=== PATIENT | female | born 1980 | race Caucasian/White ===

== ENCOUNTER 2024-02-05 11:40 | Observation (INO) | payer OTHER ==
[2024-02-05] MEDS ORDERED: LORazepam 2 MG/ML INJ IV PRN (12:29)
--- NOTE | 2024-02-05 12:29 | ED ---
General Adult HPI - General Chief complaint: Alcohol Stated complaint: ETOH Time Seen by Provider: 02/05/24 12:13 Source: patient, EMS Mode of arrival: EMS Limitations: no limitations - History of Present Illness Initial comments: Dictation was produced using [employer] dictation software. please excuse any grammatical, word or spelling errors. Chief Complaint: 43-year-old female presents to the emergency department for alcohol intoxication History of Present Illness: Patient is a 43-year-old female she is a alcoholic. Patient had drank almost a pint of vodka. She tried to check in at [facility] however her breath alcohol test was high and patient was redirected to the emergency department. Apparently she blew a 0.35 breath alcohol test. P atient states that she needs help. She has been admitted to the hospital before for alcohol withdrawal. Patient states that if she does not get help she will be suicidal. Denies any abdominal pain. No other complaints. The ROS documented in this emergency department record has been reviewed and confirmed by me. Those systems with pertinent positive or negative responses have been documented in the HPI. All other systems are other negative and/or noncontributory. - Related Data Home Medications Medication Instructions Recorded Confirmed Cetirizine HCl [Zyrtec] 10 mg PO DAILY 02/05/24 02/05/24 DULoxetine HCL [Cymbalta] 30 mg PO DAILY 02/05/24 02/05/24 DULoxetine HCL [Cymbalta] 60 mg PO DAILY 02/05/24 02/05/24 Iron Bis-Glycinat/Vit C/FA/B12 2 cap PO DAILY 02/05/24 02/05/24 [Gentle Iron 28 mg Capsule] Naltrexone HCl [Revia] 50 mg PO DAILY 02/05/24 02/05/24 Prazosin [Minipress] 5 mg PO HS 02/05/24 02/05/24 Super B Complex With Vitamin C 1 tab PO DAILY 02/05/24 02/05/24 busPIRone HCL 15 mg PO TID 02/05/24 02/05/24 lisinopriL [Zestril] 5 mg PO DAILY 02/05/24 02/05/24 Allergies Allergy/AdvReac Type Severity Reaction Status Date / Time No Known Allergies Allergy Verified 02/05/24 13:52 Review of Systems ROS Statement: Those systems with pertinent positive or pertinent negative responses have been documented in the HPI. ROS Other: All systems not noted in ROS Statement are negative. Past Medical History Past Medical History: Hypertension Past Psychological History: No Psychological Hx Reported Past Alcohol Use History: Abuse, Daily General Exam - General Exam Comments Initial Comments: PHYSICAL EXAM: General Impression: Alert and oriented x3, not in acute distress HEENT: Normocephalic atraumatic, extra-ocular movements intact, pupils equal and reactive to light bilaterally, mucous membranes moist. Cardiovascular: Heart regular rate and rhythm Chest: Able to complete full sentences, no retractions, no tachypnea Abdomen: abdomen soft, non-tender, non-distended, no organomegaly Musculoskeletal: Pulses present and equal in all extremities, no peripheral edema Motor: no focal deficits noted Neurological: CN II-XII grossly intact, no focal motor or sensory deficits noted Skin: Intact with no visualized rashes Psych: Normal affect and mood Limitations: no limitations Course Vital Signs 02/05/24 11:58 Temperature 98.1 F Pulse Rate 86 Respiratory 18 Rate Blood Pressure 124/78 O2 Sat by Pulse 98 Oximetry EKG Findings - EKG Comments: EKG Findings:: My EKG interpretation: Ventricular rate 89, sinus rhythm,. 120, cures 90, QTc 427. No IL prolongation, no QTC prolongation, no ST or T-wave changes noted. Overall, this EKG is unremarkable Medical Decision Making - Medical Decision Making Was pt. sent in by a medical professional or institution (, PA, SENIOR WEALTH ADVISOR, urgent care, hospital, or detention...) When possible be specific @ -No Did you speak to anyone other than the patient for history (EMS, parent, family, police, friend...)? What history was obtained from this source @ -No Did you review nursing and triage notes (agree or disagree)? Why? @ -I reviewed and agree with nursing and triage notes Were old charts reviewed (outside hosp., previous admission, EMS record, old EKG, old radiological studies, urgent care reports/EKG's, detention records)? Report findings @ -No old charts were reviewed Differential Diagnosis (chest pain, altered mental status, abdominal pain women, abdominal pain men, vaginal bleeding, musculoskeletal, weakness, fever, dyspnea, syncope, headache, dizziness, GI bleed, back pain, seizure, CVA, palpatations, mental health)? @ -Differential Altered Mental Status: Hypoglycemia, DKA, hypercapnia, ETOH, overdose, CO poisoning, trauma, myxedema coma, HTN encephalopathy, infection, encephalitis, psychosis, intercranial hemorrhage, hepatic encephalopathy, meningitis, CVA, this is not meant to be an all-inclusive list EKG interpreted by me (3pts min.). @ -See above X-rays interpreted by me (1pt min.). @ -None done CT interpreted by me (1pt min.). @ -None done U/S interpreted by me (1pt. min.). @ -None done What testing was considered but not performed or refused? (CT, X-rays, U/S, labs)? Why? @ -None What meds were considered but not given or refused? Why? @ -None Did you discuss the management of the patient with other professionals (professionals i.e. , PA, SENIOR WEALTH ADVISOR, lab, RT, psych nurse, aids social worker, business applications analyst, teacher, co founder and chief strategy officer, behavioral health case manager)? Give summary @ -Case discussed with hospitalist for admission Was smoking cessation discussed for >3mins.? @ -No Was critical care preformed (if so, how long)? @ -No Were there social determinants of health that impacted care today? How? (Homelessness, low income, unemployed, alcoholism, drug addiction, transportation, low edu. Level, literacy, decrease access to med. care, [facility], rehab)? @ -No Was there de-escalation of care discussed even if they declined (Discuss DNR or withdrawal of care, Hospice)? DNR status @ -No What co-morbidities impacted this encounter? (DM, HTN, Smoking, COPD, CAD, Cancer, CVA, ARF, Chemo, Hep., AIDS, mental health diagnosis, sleep apnea, morbid obesity)? @ -None Was patient admitted / discharged? Hospital course, mention meds given and route, prescriptions, significant lab abnormalities, going to OR and other pertinent info. @ -44-year-old female presents emergency department for alcohol intoxication. She had a breath alcohol test 0.35 at [facility]. Patient states that she has been admitted multiple occasions for alcohol laboratory evaluation obtained shows alcoholic ketoacidosis, hyperglycemia 68. Elevated liver enzymes lactic acidosis likely secondary to liver disease. Vital signs upon arrival are within acceptable limits. Patient will be admitted for inpatient hospital treatment for alcohol withdrawals. Undiagnosed new problem with uncertain prognosis? @ -No Drug Therapy requiring intensive monitoring for toxicity (Heparin, Nitro, Insulin, Cardizem)? @ -No Were any procedures done? @ -No Diagnosis/symptom? Acute, or Chronic, or Acute on Chronic? Uncomplicated (without systemic symptoms) or Complicated (systemic symptoms)? @ -Alcohol dependence Side effects of treatment? @ -No Exacerbation, Progression, or Severe Exacerbation? @ -No Poses a threat to life or bodily function? How? (Chest pain, USA, MA, pneumonia, PE, COPD, DKA, ARF, appy, cholecystitis, CVA, Diverticulitis, Homicidal, Suicidal, threat to staff... and all critical care pts) @ -yes - Lab Data Result diagrams: 02/05/24 13:01 02/05/24 13:01 Lab Results 02/05/24 02/05/24 02/05/24 Range/Units 13:01 13:01 13:01 WBC 4.8 (3.8-10.6) k/uL RBC 4.40 (3.80-5.40) m/uL Hgb 13.5 (11.4-16.0) gm/dL Hct 42.3 (34.0-46.0) % MCV 96.2 (80.0-100.0) fL MCH 30.7 (25.0-35.0) pg MCHC 31.9 (31.0-37.0) g/dL RDW 15.1 (11.5-15.5) % Plt Count 274 (150-450) k/uL MPV 6.9 Neutrophils % 50 % Lymphocytes % 42 % Monocytes % 5 % Eosinophils % 1 % Basophils % 1 % Neutrophils # 2.4 (1.3-7.7) k/uL Lymphocytes # 2.0 (1.0-4.8) k/uL Monocytes # 0.2 (0-1.0) k/uL Eosinophils # 0.0 (0-0.7) k/uL Basophils # 0.0 (0-0.2) k/uL Sodium 144 (137-145) mmol/L Potassium 4.6 (3.5-5.1) mmol/L Chloride 113 H (98-107) mmol/L Carbon Dioxide 17 L (22-30) mmol/L Anion Gap 14 mmol/L BUN 8 (7-17) mg/dL Creatinine 0.57 (0.52-1.04) mg/dL Est GFR (CKD-EPI)AfAm >90 (>60 ml/min/1.73 sqM) Est GFR (CKD-EPI)NonAf >90 (>60 ml/min/1.73 sqM) Glucose 68 L (74-99) mg/dL Plasma Lactic Acid Ben 3.2 H* (0.7-2.0) mmol/L Calcium 8.7 (8.4-10.2) mg/dL Magnesium 1.9 (1.6-2.3) mg/dL Total Bilirubin 0.5 (0.2-1.3) mg/dL AST 85 H (14-36) U/L ALT 50 H (4-34) U/L Alkaline Phosphatase 94 (38-126) U/L Total Protein 7.1 (6.3-8.2) g/dL Albumin 4.8 (3.5-5.0) g/dL Disposition Clinical Impression: Alcoholic intoxication Disposition: ADMITTED IP TO THIS HOSP Condition: Fair Referrals: None,Stated [Primary Care Provider] - 1-2 days Decision Time: 13:58
[2024-02-05] MEDS: LORazepam 2 MG/ML INJ IV PRN (13:08)
[2024-02-05 13:26] LABS: Basophils % (A) 1 %; Eosinophils % (A) 1 %; HCT 42.3 % (34.0-46.0); HGB 13.5 gm/dL (11.4-16.0); Lymphocytes % (A) 42 %; MCH 30.7 pg (25.0-35.0); MCHC 31.9 g/dL (31.0-37.0); MCV 96.2 fL (80.0-100.0); Mean Platelet Volume 6.9; Monocytes # (A) 0.2 k/uL (0-1.0); Monocytes % (A) 5 %; Neutrophils # (A) 2.4 k/uL (1.3-7.7); Neutrophils % (A) 50 %; Platelet Count 274 k/uL (150-450); RDW 15.1 % (11.5-15.5); WBC 4.8 k/uL (3.8-10.6)
[2024-02-05 13:40] LABS: ALT 50 U/L (4-34); AST 85 U/L (14-36); African American GFR (CKD) >90 (>60 ml/min/1.73 sqM); Albumin 4.8 g/dL (3.5-5.0); Alkaline Phosphatase 94 U/L (38-126); Anion Gap 14 mmol/L; Blood Urea Nitrogen 8 mg/dL (7-17); Calcium 8.7 mg/dL (8.4-10.2); Carbon Dioxide 17 mmol/L (22-30); Chloride 113 mmol/L (98-107); Glucose 68 mg/dL (74-99); Magnesium 1.9 mg/dL (1.6-2.3); Non-African American GFR(CKD) >90 (>60 ml/min/1.73 sqM); Potassium 4.6 mmol/L (3.5-5.1); Sodium 144 mmol/L (137-145); Total Bilirubin 0.5 mg/dL (0.2-1.3); Total Protein 7.1 g/dL (6.3-8.2)
[2024-02-05] MEDS ORDERED: NALOXONE 0.4 MG/ML 1 ML VIAL IV PRN (13:55)
[2024-02-05 14:37] LABS: Glucose,Whole Blood 73 mg/dL (70-110)
[2024-02-05] MEDS: THIAMINE 100 MG/ML 2 ML VIAL IM STA (16:55)
[2024-02-05] MEDS: SODIUM CHLORIDE 0.9% 1,000 ML IV SCH (17:01)
[2024-02-05] MEDS: DEXTROSE 50% SYRINGE 50 ML IVP STA (19:25)
[2024-02-06] MEDS: THIAMINE 100 MG TAB PO SCH (08:52)
[2024-02-06] MEDS: LORazepam 2 MG/ML INJ IV PRN (09:11)
--- NOTE | 2024-02-06 11:40 | P.HPIM ---
History of Present Illness Patient is a pleasant 43-year-old female sent in from [facility] as she was having withdrawals ER. Patient last alcohol drink was about 24 hours ago considering that patient has positive alcohol in her system patient was sent in here from [facility]. Patient denies any fever or chills. Patient does smoke a pack of cigarettes per day and is wheezing on exam. Patient had any cough significant cough with sputum production. Patient was started on Ativan CIWA protocol. REVIEW OF SYSTEMS: CONSTITUTIONAL: No fever, no malaise, no fatigue. HEENT: No recent visual problems or hearing problems. Denied any sore throat. CARDIOVASCULAR: No chest pain, orthopnea, PND, no palpitations, no syncope. PULMONARY: No shortness of breath, no cough, no hemoptysis. GASTROINTESTINAL: No diarrhea, no nausea, no vomiting, no abdominal pain. NEUROLOGICAL: No headaches, no weakness, no numbness. HEMATOLOGICAL: Denies any bleeding or petechiae. GENITOURINARY: Denies any burning micturition, frequency, or urgency. MUSCULOSKELETAL/RHEUMATOLOGICAL: Denies any joint pain, swelling, or any muscle pain. ENDOCRINE: Denies any polyuria or polydipsia. The rest of the 14-point review of systems is negative. PHYSICAL EXAMINATION: GENERAL: The patient is alert and oriented x3, not in any acute distress. Well developed, well nourished. Patient is tremulous on exam HEENT: Pupils are round and equally reacting to light. EOMI. No scleral icterus. No conjunctival pallor. Normocephalic, atraumatic. No pharyngeal erythema. No thyromegaly. CARDIOVASCULAR: S1 and S2 present. No murmurs, rubs, or gallops. PULMONARY patient has expiratory wheezing on exam without any crackles. ABDOMEN: Soft, nontender, nondistended, normoactive bowel sounds. No palpable organomegaly. MUSCULOSKELETAL: No joint swelling or deformity. EXTREMITIES: No cyanosis, clubbing, or pedal edema. NEUROLOGICAL: Gross neurological examination did not reveal any focal deficits. SKIN: No rashes. Assessment and plan -Alcohol withdrawal patient will be on Ativan CIWA protocol Pepcid thiamine multivitamin supplementation patient is hyper chloremia because of which I am not giving her any IV fluids. Will add Librium scheduled -Undiagnosed COPD with mild acute exacerbation patient will be started on inhaled steroids and additional treatments -Depression patient denies any suicidal ideations at this time just wanted to get to alcohol rehabilitation program -Nicotine use: Counseling was provided, alcohol abuse counseling was provided -Hyperchloremic metabolic acidosis IV fluids will be discontinued DVT prophylaxis: Early ambulation Past Medical History Past Medical History: Hypertension Past Psychological History: No Psychological Hx Reported Past Alcohol Use History: Abuse, Daily Medications and Allergies Home Medications Medication Instructions Recorded Confirmed Type Cetirizine HCl [Zyrtec] 10 mg PO DAILY 02/05/24 02/05/24 History DULoxetine HCL [Cymbalta] 30 mg PO DAILY 02/05/24 02/05/24 History DULoxetine HCL [Cymbalta] 60 mg PO DAILY 02/05/24 02/05/24 History Iron Bis-Glycinat/Vit C/FA/B12 2 cap PO DAILY 02/05/24 02/05/24 History [Gentle Iron 28 mg Capsule] Naltrexone HCl [Revia] 50 mg PO DAILY 02/05/24 02/05/24 History Prazosin [Minipress] 5 mg PO HS 02/05/24 02/05/24 History Super B Complex With Vitamin C 1 tab PO DAILY 02/05/24 02/05/24 History busPIRone HCL 15 mg PO TID 02/05/24 02/05/24 History lisinopriL [Zestril] 5 mg PO DAILY 02/05/24 02/05/24 History Allergies Allergy/AdvReac Type Severity Reaction Status Date / Time No Known Allergies Allergy Verified 02/05/24 13:52 Physical Exam Vitals: Vital Signs Temp Pulse Pulse Resp BP Pulse Ox 02/06/24 09:06 88 16 02/06/24 06:00 87 02/06/24 01:46 105 H 16 110/75 94 L 02/05/24 22:15 101 H 16 126/83 96 02/05/24 17:12 97 16 118/73 97 02/05/24 11:58 98.1 F 86 18 124/78 98 Intake and Output 02/05/24 02/06/24 02/06/24 22:59 06:59 14:59 Other: Voiding Method Toilet Results CBC & Chem 7: 02/05/24 13:01 02/05/24 13:01 Labs: Abnormal Lab Results - Last 24 Hours (Table) 02/05/24 02/05/2424 Range/Units 13:01 13:01 14:39 Chloride 113 H (98-107) mmol/L Carbon Dioxide 17 L (22-30) mmol/L Glucose 68 L (74-99) mg/dL Plasma Lactic Acid Ben 3.2 H* (0.7-2.0) mmol/L AST 85 H (14-36) U/L ALT 50 H (4-34) U/L Serum Alcohol 299 H* mg/dL 02/05/24 02/05/24 02/05/24 Range/Units 16:07 18:37 21:52 Chloride (98-107) mmol/L Carbon Dioxide (22-30) mmol/L Glucose (74-99) mg/dL Plasma Lactic Acid Ben 2.7 H* 2.9 H* 2.7 H* (0.7-2.0) mmol/L AST (14-36) U/L ALT (4-34) U/L Serum Alcohol mg/dL
[2024-02-06] MEDS: NICOTINE 21MG/24HR PATCH TRANSDERM SCH (11:59)
[2024-02-06] MEDS: FAMOTIDINE 20 MG TAB PO SCH (12:01)
[2024-02-06] MEDS: chlordiazePOXIDE 25 MG CAP PO STA (12:01)
[2024-02-06] MEDS ORDERED: LORazepam 1 MG/0.5 ML VIAL IV PRN ×2 (14:03→14:04)
[2024-02-06] MEDS: LORazepam 1 MG/0.5 ML VIAL IV PRN (14:56)
[2024-02-06] MEDS: IPRATROPIUM-ALBUTEROL 3 ML NEB INHALATION PRN (20:15)
[2024-02-06] MEDS: BUDESONIDE 0.5 MG/2 ML NEBU INHALATION SCH (20:15)
[2024-02-06] MEDS: busPIRone HCl 5 MG TAB PO SCH (21:50)
[2024-02-06] MEDS: PRAZOSIN 1 MG CAP PO SCH (21:50)
[2024-02-07 08:33] VITALS: RESP 14; TEMP 98.6
[2024-02-07] MEDS: DULoxetine HCL 30 MG CAPSULE.DR PO SCH (08:53)
[2024-02-07] MEDS: LORATADINE 10 MG TAB PO SCH (08:54)
[2024-02-07] MEDS: NALTREXONE HCL 50 MG TAB PO SCH (08:54)
[2024-02-07] MEDS: lisinopriL 5 MG TAB PO SCH (09:00)
[2024-02-07] MEDS ORDERED: DULoxetine HCL 60 MG CAPSULE.DR PO SCH (09:00)
[2024-02-07 09:21] VITALS: BP 127/79
[2024-02-07 10:55] VITALS: PULSE 87
[2024-02-07] MEDS: chlordiazePOXIDE 25 MG CAP PO STA (14:17)
--- NOTE | 2024-02-09 21:40 | P.DS ---
Providers Date of admission: 02/05/24 13:56 Attending physician: Jorge Phelps Primary care physician: Stated None Hospital Course: Final Diagnosis -Alcohol withdrawal patient will be on Ativan CIWA protocol Pepcid thiamine multivitamin supplementation started on librium. -Undiagnosed COPD with mild acute exacerbation patient will be started on inhaled steroids and additional treatments -Depression patient denies any suicidal ideations at this time just wanted to get to alcohol rehabilitation program -Nicotine use: Counseling was provided, alcohol abuse counseling was provided -Hyperchloremic metabolic acidosis IV fluids will be discontinued Discharge Disposition Patient medically is stable for return to [facility]. Patient is given librium taper. Hospital Course Patient is a pleasant 43-year-old female sent in from [facility] as she was having withdrawals ER. Patient last alcohol drink was about 24 hours ago considering that patient has positive alcohol in her system patient was sent in here from [facility]. Patient denies any fever or chills. Patient does smoke a pack of cigarettes per day and is wheezing on exam. Patient had any cough significant cough with sputum production. Patient was started on Ativan CIWA protocol. On admission had mildly elevated lactic acid. It has normalized. She was started on symbicort and her wheezing has improved was counseled on smoking cessation. Was monitored overnight having mild tremors at rest. Is alert and oriented she is not having any chest pain, not having any shortness of breath. Patients lungs are clear, s1 s2 auscultated abdomen is soft and nontender. Focal neurological exam is negative. She will be given librium taper and discharged back to [facility] today. Please see medication reconciliation for a list of current medications. Thank you for allowing us to participate in the care of this patient. The impression and plan of care has been dictated by Nilda Osuna, Nurse Practitioner as directed. Dr. Edilia MD I have performed a history and physical examination and medical decision making of this patient, discussed the same with the dictator, and agree with the dictators assessment and plan as written, documented as a scribe. Based on total visit time, I have performed more than 50% of this visit. Patient Condition at Discharge: Fair Plan - Discharge Summary Discharge Rx Participant: No New Discharge Prescriptions: New Budesonide [Pulmicort] 0.5 mg INHALATION RT-BID #1 each Thiamine [Vitamin B-1] 100 mg PO DAILY #30 tab Famotidine [Pepcid] 20 mg PO BID #60 tab chlordiazePOXIDE HCl [Librium] 25 mg PO DIRECTED 4 Days #4 capsule Continue Prazosin [Minipress] 5 mg PO HS Naltrexone HCl [Revia] 50 mg PO DAILY busPIRone HCL 15 mg PO TID DULoxetine HCL [Cymbalta] 30 mg PO DAILY Iron Bis-Glycinat/Vit C/FA/B12 [Gentle Iron 28 mg Capsule] 2 cap PO DAILY Cetirizine HCl [Zyrtec] 10 mg PO DAILY lisinopriL [Zestril] 5 mg PO DAILY DULoxetine HCL [Cymbalta] 60 mg PO DAILY Super B Complex With Vitamin C 1 tab PO DAILY Discharge Medication List Cetirizine HCl [Zyrtec] 10 mg PO DAILY 02/05/24 [History] DULoxetine HCL [Cymbalta] 30 mg PO DAILY 02/05/24 [History] DULoxetine HCL [Cymbalta] 60 mg PO DAILY 02/05/24 [History] Iron Bis-Glycinat/Vit C/FA/B12 [Gentle Iron 28 mg Capsule] 2 cap PO DAILY 02/05/24 [History] Naltrexone HCl [Revia] 50 mg PO DAILY 02/05/24 [History] Prazosin [Minipress] 5 mg PO HS 02/05/24 [History] Super B Complex With Vitamin C 1 tab PO DAILY 02/05/24 [History] busPIRone HCL 15 mg PO TID 02/05/24 [History] lisinopriL [Zestril] 5 mg PO DAILY 02/05/24 [History] Budesonide [Pulmicort] 0.5 mg INHALATION RT-BID #1 each 02/07/24 [Rx] Famotidine [Pepcid] 20 mg PO BID #60 tab 02/07/24 [Rx] Thiamine [Vitamin B-1] 100 mg PO DAILY #30 tab 02/07/24 [Rx] chlordiazePOXIDE HCl [Librium] 25 mg PO DIRECTED 4 Days #4 capsule 02/07/24 [Rx] Follow up Appointment(s)/Referral(s): None,Stated [Primary Care Provider] - 1-2 days Activity/Diet/Wound Care/Special Instructions: Return to [facility] Discharge Disposition: OTHER INSTITUTION NOT DEFINED
== END 2024-02-07 14:55 | disposition other institution (70) ==
LOC: EC 11:40 → 6NMEDSUR 13:56
PROVIDERS: ADMIT Hospitalist; ATTEND Hospitalist
DX: F10.239 Alcohol dependence with withdrawal, unspecified (principal); F10.229 Alcohol dependence with intoxication, unspecified; J44.1 Chronic obstructive pulmonary disease with (acute) exacerbation; E87.20 Acidosis, unspecified; E87.8 Other disorders of electrolyte and fluid balance, not elsewhere classified; F32.A Depression, unspecified; F17.210 Nicotine dependence, cigarettes, uncomplicated; Y90.8 Blood alcohol level of 240 mg/100 ml or more; Z79.899 Other long term (current) drug therapy; Z71.41 Alcohol abuse counseling and surveillance of alcoholic; Z71.6 Tobacco abuse counseling
CPT/HCPCS: 96376 ×2; 96372; 96374; 99285; 36415; 94640 ×2; 94664; 93005; 80053; 83605 ×2; 83735; 85025; G0378 ×3; G0480; S4990 ×2; J2060 ×2; J3411; 80320